=== PATIENT | female | born 1990 | race Two or more races ===

== ENCOUNTER 2023-07-09 18:45 | Emergency (ER) | payer OTHER ==
[~2023-07-09] VITALS: Ht 152.4 cm; Wt 68.0 kg
[2023-07-09] MEDS ORDERED: PRENA1 CHEW TA1.4 MG PO (18:53)
[2023-07-09] MEDS ORDERED: PROSCAR5 MG PO (18:53)
[2023-07-09] MEDS ORDERED: PROBIOTIC250 MG PO (18:53)
[2023-07-09] MEDS ORDERED: DHA FROM ALGAE200 MG (18:54)
[2023-07-09 19:49] LABS: URINE APPEARANCE Clear; URINE BACTERIA 255.6 uL (0.0-1933); URINE BILIRRUBIN Negative (NEGATIVE); URINE BLOOD NHT; URINE COLOR Yellow; URINE EPITHELIAL CELLS 19.3 uL (0.0-38.8); URINE GLUCOSE Negative (NEGATIVE); URINE LEUKOCYTE Negative; URINE NITRATE Negative; URINE PROTEIN Negative (NEGATIVE); URINE WBC 4.7 uL (0.0-23.2)
[2023-07-09 19:50] LABS: HEMATOCRIT 35.8 % (36.0-45.00); HEMOGLOBIN 12.3 g/dL (12.0-15.00); MEAN CELL VOLUME 93.4 fL (80.00-100.00); MEAN CORPUSCULAR HGB CONC 34.3 g/dl (32.0-36.0); PLATELET COUNT 365 K/uL (150-450); RED BLOOD COUNT 3.83 M/uL (4.00-6.00); RED CELL DISTRIBUTION WIDTH 13.6 % (11.5-14.5)
[2023-07-09 20:26] LABS: CALCIUM 8.9 mg/dL (8.5-10.1); CREATININE SERUM 0.54 mg/dL (0.55-1.02); GFR 131.68; POTASSIUM 3.86 mEq/L (3.5-5.1)
== END 2023-07-09 22:09 | disposition home or self-care (01) ==
LOC: ER 18:46
PROVIDERS: General Practice
DX: O26.891 Other specified pregnancy related conditions, first trimester (principal); Z3A.11 11 weeks gestation of pregnancy; R10.2 Pelvic and perineal pain

== ENCOUNTER 2023-08-10 13:46 | Emergency (ER) | payer OTHER ==
[~2023-08-10] VITALS: Ht 152.4 cm; Wt 62.6 kg
[~2023-08-10 13:46] MED LIST: DHA FROM ALGAE200 MG; PRENA1 CHEW TA1.4 MG PO; PROBIOTIC250 MG PO; PROSCAR5 MG PO
[2023-08-10 17:41] LABS: MEAN CELL VOLUME 91.7 fL (80.00-100.00); MEAN CORPUSCULAR HEMOGLOBIN 31.4 pg (27.00-32.0); MEAN CORPUSCULAR HGB CONC 34.3 g/dl (32.0-36.0); PLATELET COUNT 364 K/uL (150-450); RED BLOOD COUNT 4.15 M/uL (4.00-6.00); RED CELL DISTRIBUTION WIDTH 13.1 % (11.5-14.5)
[2023-08-10 18:05] LABS: ALBUMIN 3.2 gm/dL (3.4-5.0); BILIRUBIN TOTAL 0.25 mg/dL (0.3-1.2); CALCIUM 9.2 mg/dL (8.5-10.1); CREATININE SERUM 0.57 mg/dL (0.55-1.02); GFR 122.92; POTASSIUM 3.54 mEq/L (3.5-5.1); TOTAL PROTEIN 7.2 gm/dL (6.4-8.2)
[2023-08-10 19:26] LABS: URINE APPEARANCE Clear; URINE BILIRRUBIN Negative (NEGATIVE); URINE BLOOD Trace; URINE COLOR Yellow; URINE GLUCOSE Negative (NEGATIVE); URINE LEUKOCYTE Negative; URINE NITRATE Negative; URINE PROTEIN Trace (NEGATIVE); URINE UROBILINOGEN 0.2 E.U./dl
[2023-08-10 19:27] LABS: URINE BACTERIA 221.6 uL (0.0-1933); URINE EPITHELIAL CELLS 30.7 uL (0.0-38.8); URINE RBC 7.6 uL (0.0-20.8)
== END 2023-08-10 20:45 | disposition home or self-care (01) ==
LOC: ER 13:46
PROVIDERS: General Practice
DX: O26.892 Other specified pregnancy related conditions, second trimester (principal); Z3A.16 16 weeks gestation of pregnancy; R10.2 Pelvic and perineal pain